=== PATIENT | female | born 1965 | race Caucasian/White ===

== ENCOUNTER 2017-06-10 16:14 | Emergency (ER) | payer BC ==
[2017-06-10 16:25] VITALS: BP 170/95; PULSE 99; RESP 18; TEMP 98.6
--- NOTE | 2017-06-10 16:48 | ED ---
General Adult HPI - General Source: patient, RN notes reviewed Mode of arrival: ambulatory Limitations: no limitations <Melida Ayon - Last Filed: 06/10/17 17:17> <Ernst Scott - Last Filed: 06/13/17 22:59> - General Chief complaint: Extremity Problem,Nontraumatic Stated complaint: wrist pain/swellling Time Seen by Provider: 06/10/17 16:32 - History of Present Illness Initial comments: 52-year-old female presents to the emergency department with a chief complaint of left hand redness and swelling. She'll this morning with pain and redness to the left hand. She went to her doctor he started on antibiotics and sent for an ultrasound is negative for blood clot. She states that she continues that the pain and redness so she thought that she should be reevaluated. She denies any fever chills with it. She denies any traumas or injuries to it. She denies any history of this in the past. Patient was concerned due to the redness so she thought that she should be seen. Patient denies any recent fever , chills, shortness of breath, chest pain, back pain, abdominal pain, nausea vomiting, numbness or tingling, dysuria or hematuria, constipation or diarrhea, headaches or visual changes, or any other current symptoms. (Melida Ayon) - Related Data Home Medications Medication Instructions Recorded Confirmed Ibuprofen [Motrin] 800 mg PO Q8HR PRN 05/10/16 06/10/17 Multivitamins, Thera [Multivitamin] 1 tab PO DAILY 05/10/16 06/10/17 Acetaminophen-Codeine 300-30mg 1 tab PO Q8H PRN 06/10/17 06/10/17 [Tylenol #3] Cephalexin [Keflex] 500 mg PO Q6HR 06/10/17 06/10/17 Previous Rx's Medication Instructions Recorded Sulfamethox-Tmp 800-160Mg [Bactrim 2 each PO Q12HR #56 tab 06/10/17 DS 800-160 mg] Allergies Allergy/AdvReac Type Severity Reaction Status Date / Time Penicillins Allergy Rash/Hives Verified 06/10/17 17:14 Review of Systems ROS Other: All systems not noted in ROS Statement are negative. <Melida Ayon - Last Filed: 06/10/17 17:17> ROS Other: All systems not noted in ROS Statement are negative. <Ernst Scott - Last Filed: 06/13/17 22:59> ROS Statement: Those systems with pertinent positive or pertinent negative responses have been documented in the HPI. Past Medical History Past Medical History: Hypertension, Musculoskeletal Disorder, Osteoarthritis (OA ) Additional Past Medical History / Comment(s): ABD BLOATED. PAIN IN MIDSTERNAL AREA FOR SOME TIME. BACK PAIN. History of Any Multi-Drug Resistant Organisms: None Reported Past Surgical History: No Surgical Hx Reported Additional Past Surgical History / Comment(s): PAIN PROC BOR BACK Past Anesthesia/Blood Transfusion Reactions: No Reported Reaction Past Psychological History: Anxiety, Depression Smoking Status: Former smoker Past Alcohol Use History: None Reported Past Drug Use History: None Reported - Past Family History Mother Family Medical History: No Reported History <Melida Ayon - Last Filed: 06/10/17 17:17> General Exam Limitations: no limitations <Melida Ayon - Last Filed: 06/10/17 17:17> <Ernst Scott - Last Filed: 06/13/17 22:59> - General Exam Comments Initial Comments: General: The patient is awake and alert, in no distress, and does not appear acutely ill. Neck: The neck is supple, there is no tenderness. Cardiovascular: There is a regular rate and rhythm. No murmur, rub or gallop is appreciated. Respiratory: Lungs are clear to auscultation, respirations are non-labored, breath sounds are equal. No wheezes, stridor, rales, or rhonchi. Musculoskeletal: Sensation intact with 2+ pulses of left upper extremity. Full range of motion of left hand left wrist and left elbow. Patient does have tenderness along the top of the left hand and is tender to touch. No fluctuance noted. Warm to touch. Neurological: CN II-XII intact, There are no obvious motor or sensory deficits. Coordination appears grossly intact. Speech is normal. Skin: Skin is warm and dry and no rashes or lesions are noted. Psychiatric: Normal mood and affect. (Melida Ayon) Medical Decision Making - Radiology Data Radiology results: report reviewed, image reviewed <Melida Ayon - Last Filed: 06/10/17 17:17> <Ernst Scott - Last Filed: 06/13/17 22:59> - Medical Decision Making 52-year-old female presents with what appears to be a left hand cellulitis. At this time patient is currently on Keflex to add Bactrim. She is only taking 2 doses at this time. X-rays an outpatient ultrasound are reviewed that do show an acute process. We discussed continuing the medication we discussed skilled nursing. We discussed return parameters discussed follow-up on patient's questions. She stated that she understood and she is given this plan. All questions have been answered. This time she'll be discharged. (Melida Ayon) Disposition Time of Disposition: 17:18 <Melida Ayon - Last Filed: 06/10/17 17:17> <Ernst Scott - Last Filed: 06/13/17 22:59> Clinical Impression: Cellulitis of left hand Disposition: HOME SELF-CARE Condition: Stable Instructions: Cellulitis (ED) Additional Instructions: Please use medication as discussed. Please follow up with family doctor if symptoms have not improved over the next two days. Please return to the emergency room if your symptoms increase or worsen or for any other concerns. Prescriptions: Sulfamethox-Tmp 800-160Mg [Bactrim DS 800-160 mg] 2 each PO Q12HR #56 tab Referrals: North Jackson MD [Primary Care Provider] - 1-2 days
--- NOTE | 2017-06-10 17:03 | XR ---
EXAMINATION TYPE: XR hand complete LT DATE OF EXAM: 06/10/2017 COMPARISON: NONE HISTORY: Pain and swelling TECHNIQUE: 3 views FINDINGS: I see no fracture nor dislocation. There is spurring at the first carpometacarpal joint. Th ere is minor spurring at the scaphoid trapezium joint. IMPRESSION: No acute abnormality of the left hand. No sign of inflammatory arthritis.
--- NOTE | 2017-06-10 17:04 | XR ---
EXAMINATION TYPE: XR wrist complete LT DATE OF EXAM: 06/10/2017 COMPARISON: NONE HISTORY: Pain and swelling TECHNIQUE: 4 views FINDINGS: I see no fracture nor dislocation. There is mild spurring at the first carpometacarpal join t. There are no erosions. IMPRESSION: Minimal osteoarthritis. No sign of inflammatory arthritis.
== END 2017-06-10 17:35 | disposition home or self-care (01) ==
LOC: EC 16:14
DX: L03.114 Cellulitis of left upper limb (principal); Z87.891 Personal history of nicotine dependence; Z79.899 Other long term (current) drug therapy; Z88.0 Allergy status to penicillin
CPT/HCPCS: 99283

== ENCOUNTER → 2017-06-10 | Outpatient (CLI) | payer BC ==
--- NOTE | 2017-06-10 11:09 | US ---
EXAMINATION TYPE: US venous doppler duplex UE LT DATE OF EXAM: 06/10/2017 COMPARISON: NONE CLINICAL HISTORY: Lt arm, Pain and Swelling R22.32. recent lab draw in left arm 2 days ago, extreme p ain at needle site and mild swelling SIDE PERFORMED: Left Left Arm: Appears negative for DVT or SVT results called to Sonia at office @ 1035 Grayscale, color doppler, spectral doppler imaging performed of the deep veins of the upper extremiti es. There is normal flow, compress ability and vascular waveforms. IMPRESSION: No evidence of deep venous thrombosis of the left upper extremity.
== END | disposition home or self-care (01) ==
LOC: RADUSWWP 09:58
PROVIDERS: ATTEND Family Medicine
DX: R22.32 Localized swelling, mass and lump, left upper limb (principal)

== ENCOUNTER → 2017-06-16 | Outpatient (CLI) | payer BC ==
[2017-06-16 12:17] LABS: C Reactive Protein 43.5 mg/L (<10.0)
== END | disposition home or self-care (01) ==
LOC: LABWHC1 11:49
PROVIDERS: ATTEND Neuromusculoskeletal Medicine & OMM
DX: M06.9 Rheumatoid arthritis, unspecified (principal); L93.2 Other local lupus erythematosus
CPT/HCPCS: 36415; 86038; 86140; 86431